=== PATIENT | female | born 1970 | race Caucasian/White ===

== ENCOUNTER 2021-02-21 11:37 | Emergency (ER) | payer SELFPAY ==
[~2021-02-21] VITALS: Ht 160 cm; Wt 54.0 kg
[2021-02-21 12:19] VITALS: BP 143/81
== END 2021-02-21 12:26 | disposition home or self-care (01) ==
LOC: ER 11:37
DX: Z13.9 Encounter for screening, unspecified (principal)
CPT/HCPCS: 99281; Z7610